=== PATIENT | female | born 1990 | race Caucasian/White ===

== ENCOUNTER 2018-01-08 17:50 | Emergency (ER) | payer OTHER ==
[2018-01-08] MEDS: DIAZEPAM 5 MG TAB PO (19:54)
[2018-01-08] MEDS: NAPROXEN 500 MG TAB PO (19:54)
== END 2018-01-08 21:30 | disposition home or self-care (01) ==
LOC: FTE 17:50
DX: S00.33XA Contusion of nose, initial encounter (principal); V89.2XXA Person injured in unspecified motor-vehicle accident, traffic, initial encounter
CPT/HCPCS: 71045; 99283-25

== ENCOUNTER 2018-07-12 04:52 | Inpatient (IN) | payer BC, OTHER ==
[2018-07-12] MEDS ORDERED: LORAZEPAM 2 MG INJ IV (06:30)
[2018-07-12] MEDS ORDERED: NACL 0.9% 3 ML SYG IV (06:30)
[2018-07-12] MEDS: DEXTROSE 5%-0.45% NACL 1,000 ML IV ×3 (07:51→22:47)
[2018-07-12] MEDS: LEVETIRACETAM IV 750 MG in DEXTROSE 5% 100 ML IVPB ×2 (08:36→22:47)
[2018-07-12] MEDS: LORAZEPAM 4 MG/ML VIAL IV ×2 (13:21→15:46)
[2018-07-12] MEDS: LORAZEPAM 2 MG INJ IV (15:15)
[2018-07-12] MEDS: CHLORDIAZEPOXIDE 25 MG CAP PO (22:48)
[2018-07-12] MEDS: HYDROCODONE/APAP (5/325) TAB PO (22:52)
[2018-07-13 05:14] LABS: ADD MAN DIFF? NO
[2018-07-13 05:25] LABS: BASOPHILS % 0.6 % (0.0-2.0); EOSINOPHILS # 0.1 10^3/ul (0.0-0.5); EOSINOPHILS % 2.2 % (0.0-7.0); HEMATOCRIT 32.9 % (37.0-47.0); HEMOGLOBIN 11.1 g/dl (12.0-16.0); LYMPHOCYTES # 2.5 10^3/ul (0.8-2.9); LYMPHOCYTES % 49.1 % (15.0-51.0); MEAN CORPUSCULAR HEMOGLOBIN 29.9 pg (29.0-33.0); MEAN CORPUSCULAR HGB CONC 33.7 g/dl (32.0-37.0); MEAN CORPUSCULAR VOLUME 88.7 fl (82.0-101.0); MEAN PLATELET VOLUME 9.1 fl (7.4-10.4); MONOCYTE # 0.4 10^3/ul (0.3-0.9); MONOCYTES % 8.3 % (0.0-11.0); NEUTROPHILS % 39.8 % (39.0-77.0); PLATELET COUNT 320 10^3/UL (140-415); RED BLOOD COUNT 3.71 10^6/ul (4.20-5.40); RED CELL DISTRIBUTION WIDTH 12.9 % (11.5-14.5)
[2018-07-13 05:25] LABS: WHITE BLOOD COUNT 5.1 10^3/ul (4.8-10.8)
[2018-07-13 05:37] LABS: ALANINE AMINOTRANSFERASE 21 IU/L (13-69); ALBUMIN 3.1 g/dl (3.3-4.9); ALBUMIN/GLOBULIN RATIO 1.14; ALKALINE PHOSPHATASE 58 IU/L (42-121); ANION GAP 6 (5-13); ASPARTATE AMINO TRANSFERASE 23 IU/L (15-46); BILIRUBIN,INDIRECT 0.2 mg/dl (0-1.1); BILIRUBIN,TOTAL 0.2 mg/dl (0.2-1.3); BLOOD UREA NITROGEN 3 mg/dl (7-20); CALCIUM 8.2 mg/dl (8.4-10.2); CARBON DIOXIDE 26 mmol/L (21-31); CHLORIDE 105 mmol/L (97-110); CHOL/HDL RATIO 2.4 RATIO; CHOLESTEROL 110 mg/dl (100-200); CREATININE 0.61 mg/dl (0.44-1.00); Estimated GFR > 60 mL/min (>60); GLUCOSE 95 mg/dl (70-220); HDL CHOLESTEROL 45 mg/dl (33-83); LDL CHOLESTEROL,CALCULATED 47 mg/dl; POTASSIUM 3.1 mmol/L (3.5-5.1); SODIUM 137 mmol/L (135-144); TOTAL PROTEIN 5.8 g/dl (6.1-8.1); TRIGLYCERIDES 91 mg/dl (0-149)
[2018-07-13] MEDS: CHLORDIAZEPOXIDE 25 MG CAP PO ×3 (09:46→20:21)
[2018-07-13] MEDS: LEVETIRACETAM IV 750 MG in DEXTROSE 5% 100 ML IVPB ×2 (10:06→20:29)
[2018-07-13] MEDS: DEXTROSE 5%-0.45% NACL 1,000 ML IV (13:41)
[2018-07-13] MEDS: ACETAMINOPHEN 325 MG TAB PO (20:21)
[2018-07-14] MEDS: POTASSIUM CHLORIDE 50 ML IVPB ×3 (00:55→03:35)
[2018-07-14] MEDS: POTASSIUM CHLORIDE (SR) 10 MEQ TAB PO (06:18)
[2018-07-14] MEDS: CHLORDIAZEPOXIDE 25 MG CAP PO ×3 (09:42→21:28)
[2018-07-14] MEDS: LEVETIRACETAM IV 750 MG in DEXTROSE 5% 100 ML IVPB ×2 (09:42→21:26)
[2018-07-14] MEDS: clonAZEPAM 0.5 MG TAB PO (21:27)
[2018-07-15 05:04] LABS: ADD MAN DIFF? NO
[2018-07-15 05:13] LABS: BASOPHILS % 0.5 % (0.0-2.0); EOSINOPHILS # 0.2 10^3/ul (0.0-0.5); EOSINOPHILS % 2.5 % (0.0-7.0); HEMATOCRIT 36.9 % (37.0-47.0); HEMOGLOBIN 12.4 g/dl (12.0-16.0); LYMPHOCYTES % 49.8 % (15.0-51.0); MEAN CORPUSCULAR HGB CONC 33.6 g/dl (32.0-37.0); MEAN CORPUSCULAR VOLUME 89.1 fl (82.0-101.0); MEAN PLATELET VOLUME 9.1 fl (7.4-10.4); MONOCYTE # 0.5 10^3/ul (0.3-0.9); NEUTROPHIL # 2.3 10^3/ul (1.6-7.5); NEUTROPHILS % 38.9 % (39.0-77.0); PLATELET COUNT 339 10^3/UL (140-415); RED BLOOD COUNT 4.14 10^6/ul (4.20-5.40); RED CELL DISTRIBUTION WIDTH 12.7 % (11.5-14.5)
[2018-07-15 05:30] LABS: INR 0.91; PROTIME 12.4 Sec (11.9-14.9)
[2018-07-15 05:32] LABS: ANION GAP 6 (5-13); BLOOD UREA NITROGEN 12 mg/dl (7-20); CALCIUM 8.7 mg/dl (8.4-10.2); CARBON DIOXIDE 31 mmol/L (21-31); CHLORIDE 102 mmol/L (97-110); CREATININE 0.72 mg/dl (0.44-1.00); Estimated GFR > 60 mL/min (>60); GLUCOSE 94 mg/dl (70-220); POTASSIUM 3.7 mmol/L (3.5-5.1); SODIUM 139 mmol/L (135-144)
[2018-07-15 05:35] LABS: PARTIAL THROMBOPLASTIN TIME 26.4 Sec (23.0-35.0)
[2018-07-15] MEDS: CHLORDIAZEPOXIDE 25 MG CAP PO ×2 (08:57→12:59)
[2018-07-15] MEDS: LEVETIRACETAM IV 750 MG in DEXTROSE 5% 100 ML IVPB ×2 (09:24→20:47)
[2018-07-15] MEDS: ACETAMINOPHEN 325 MG TAB PO (11:11)
[2018-07-15 13:42] LABS: HEPATITIS B SURFACE ANTIGEN NEGATIVE (NEGATIVE)
[2018-07-15 15:25] LABS: RAPID PLASMA REAGIN NONREACTIVE (NR)
[2018-07-15 19:53] LABS: HEPATITIS C VIRAL ANTIBODY NEGATIVE (NEGATIVE)
[2018-07-15] MEDS: clonAZEPAM 0.5 MG TAB PO (23:08)
[2018-07-16] MEDS: LEVETIRACETAM IV 750 MG in DEXTROSE 5% 100 ML IVPB ×2 (09:45→20:39)
[2018-07-16] MEDS: ACETAMINOPHEN 325 MG TAB PO ×2 (14:01→23:12)
[2018-07-16] MEDS: clonAZEPAM 0.5 MG TAB PO (20:10)
[2018-07-16 21:27] LABS: AMPHETAMINE/METHAMPHETAMINE Negative (NEGATIVE); BARBITURATES Negative (NEGATIVE); CANNABINOIDS Negative (NEGATIVE); COCAINE Negative (NEGATIVE); OPIATES Negative (NEGATIVE)
[2018-07-16 21:31] LABS: BENZODIAZEPINES Positive (NEGATIVE)
[2018-07-17 05:10] LABS: ADD MAN DIFF? NO
[2018-07-17 05:14] LABS: BASOPHILS % 0.6 % (0.0-2.0); EOSINOPHILS # 0.2 10^3/ul (0.0-0.5); EOSINOPHILS % 2.9 % (0.0-7.0); HEMATOCRIT 38.6 % (37.0-47.0); HEMOGLOBIN 13.1 g/dl (12.0-16.0); LYMPHOCYTES # 3.1 10^3/ul (0.8-2.9); LYMPHOCYTES % 43.2 % (15.0-51.0); MEAN CORPUSCULAR HEMOGLOBIN 29.8 pg (29.0-33.0); MEAN CORPUSCULAR HGB CONC 33.9 g/dl (32.0-37.0); MEAN CORPUSCULAR VOLUME 87.7 fl (82.0-101.0); MONOCYTE # 0.6 10^3/ul (0.3-0.9); MONOCYTES % 7.7 % (0.0-11.0); NEUTROPHIL # 3.3 10^3/ul (1.6-7.5); NEUTROPHILS % 45.3 % (39.0-77.0); PLATELET COUNT 337 10^3/UL (140-415)
[2018-07-17 05:14] LABS: WHITE BLOOD COUNT 7.2 10^3/ul (4.8-10.8)
[2018-07-17 05:44] LABS: ANION GAP 9 (5-13); BLOOD UREA NITROGEN 16 mg/dl (7-20); CARBON DIOXIDE 27 mmol/L (21-31); CHLORIDE 101 mmol/L (97-110); CREATININE 0.68 mg/dl (0.44-1.00); Estimated GFR > 60 mL/min (>60); GLUCOSE 94 mg/dl (70-220); POTASSIUM 4.1 mmol/L (3.5-5.1); SODIUM 137 mmol/L (135-144)
[2018-07-17] MEDS ORDERED: CEFAZOLIN 1 GM INJ (07:00)
[2018-07-17] MEDS ORDERED: DEXAMETHASONE 4 MG/ML 5 ML INJ (07:00)
[2018-07-17] MEDS ORDERED: DESFLURANE 15 MIN (07:00)
[2018-07-17] MEDS ORDERED: ONDANSETRON 4 MG INJ (07:00)
[2018-07-17] MEDS ORDERED: MIDAZOLAM 1 MG/ML 2 ML INJ ×2 (07:25→07:26)
[2018-07-17] MEDS ORDERED: ROCURONIUM 50 MG INJ (07:26)
[2018-07-17] MEDS ORDERED: LIDOCAINE 2% (SDV) 5 ML INJ (07:26)
[2018-07-17] MEDS ORDERED: METOCLOPRAMIDE 10 MG INJ (07:26)
[2018-07-17] MEDS ORDERED: PROPOFOL 40 ML (07:26)
[2018-07-17] MEDS ORDERED: LABETALOL HCL 20MG INJ IV ×2 (07:30→08:00)
[2018-07-17] MEDS ORDERED: MIDAZOLAM 1 MG/ML 2 ML INJ IV (07:30)
[2018-07-17] MEDS ORDERED: IPRATROPIUM (NEB) 0.5 MG/2.5 ML AMP HHN (07:30)
[2018-07-17] MEDS ORDERED: FENTAnyl 50 MCG/ML VIAL IV ×2 (07:30)
[2018-07-17] MEDS ORDERED: LEVALBUTEROL (NEB) 1.25 MG/0.5 ML AMP HHN (07:30)
[2018-07-17] MEDS ORDERED: hydrALAzine 20 MG INJ IV ×2 (07:30→08:00)
[2018-07-17] MEDS ORDERED: LORAZEPAM 2 MG INJ IV (07:30)
[2018-07-17] MEDS ORDERED: DIPHENHYDRAMINE 50 MG INJ IV (07:30)
[2018-07-17] MEDS ORDERED: ONDANSETRON 4 MG INJ IV ×2 (07:30→08:00)
[2018-07-17] MEDS ORDERED: HYDROmorphONE 0.5 MG/0.5 ML SYG IV ×2 (07:30)
[2018-07-17] MEDS ORDERED: LABETALOL HCL 20MG INJ (08:34)
[2018-07-17] MEDS ORDERED: FENTAnyl 50 MCG/ML VIAL (08:40)
[2018-07-17] MEDS ORDERED: METOPROLOL 5 MG INJ (08:45)
[2018-07-17] MEDS: BACITRACIN 50000 UNITS INJ ×2 (09:38→09:39)
[2018-07-17] MEDS: THROMBIN 5000 UNIT VIAL (09:39)
[2018-07-17] MEDS: GELATIN SIZE 100 SPONGE ×2 (09:39→10:01)
[2018-07-17] MEDS: LIDOCAINE 1%/EPI (1:100,000) (MDV) 20 ML (09:41)
[2018-07-17] MEDS: POVIDONE IODINE 10% 28.4 GM OINT (09:55)
[2018-07-17] MEDS ORDERED: GLYCOPYRROLATE 0.4 MG INJ (09:56)
[2018-07-17] MEDS ORDERED: ALBUMIN HUMAN 25% 200 ML (09:56)
[2018-07-17] MEDS ORDERED: NEOSTIGMINE 3 MG/3 ML SYRINGE (09:57)
[2018-07-17] MEDS: BACITRACIN/POLYMYXIN 28.35 GM OINT TOP (10:15)
[2018-07-17] MEDS: LEVETIRACETAM IV 750 MG in DEXTROSE 5% 100 ML IVPB ×2 (11:08→21:00)
[2018-07-17] MEDS: DEXAMETHASONE 4 MG/ML 1 ML INJ IV ×2 (11:52→17:49)
[2018-07-17] MEDS: ONDANSETRON 4 MG INJ IV ×2 (11:57→16:01)
[2018-07-17] MEDS: HYDROmorphONE 0.5 MG/0.5 ML SYG IV (11:58)
[2018-07-17] MEDS: LORAZEPAM 2 MG INJ IV (13:14)
[2018-07-17] MEDS: CEFAZOLIN 1 GM/50 ML (PMX) 50 ML IVPB ×2 (14:23→21:52)
[2018-07-17] MEDS: ACETAMINOPHEN 325 MG TAB PO (14:29)
[2018-07-17] MEDS ORDERED: morphine SULFATE/PF (2 MG/2 ML) SYG IV (15:30)
[2018-07-17] MEDS: HYDROCODONE/APAP (5/325) TAB PO ×2 (16:02→21:52)
[2018-07-17] MEDS: FENTAnyl 50 MCG/ML VIAL IV (20:31)
[2018-07-17] MEDS: DIPHENHYDRAMINE 25 MG CAP PO (22:16)
[2018-07-18] MEDS: HYDROCODONE/APAP (5/325) TAB PO ×3 (03:24→14:28)
[2018-07-18] MEDS: CEFAZOLIN 1 GM/50 ML (PMX) 50 ML IVPB (06:51)
[2018-07-18] MEDS: DEXAMETHASONE 4 MG/ML 1 ML INJ IV ×5 (06:51→23:21)
[2018-07-18] MEDS: morphine 4 MG/ML VIAL IV ×2 (08:35→20:37)
[2018-07-18] MEDS: LEVETIRACETAM IV 750 MG in DEXTROSE 5% 100 ML IVPB ×2 (10:35→20:35)
[2018-07-18] MEDS: LORAZEPAM 2 MG INJ IV ×2 (17:27→22:25)
[2018-07-19] MEDS: ACETAMINOPHEN 325 MG TAB PO (01:26)
[2018-07-19] MEDS: morphine 4 MG/ML VIAL IV ×3 (01:26→14:16)
[2018-07-19] MEDS ORDERED: clonAZEPAM 0.5 MG TAB PO (02:00)
[2018-07-19] MEDS: DEXAMETHASONE 4 MG/ML 1 ML INJ IV (06:54)
[2018-07-19] MEDS: HYDROCODONE/APAP (5/325) TAB PO ×2 (07:03→11:58)
[2018-07-19] MEDS: LEVETIRACETAM IV 750 MG in DEXTROSE 5% 100 ML IVPB (09:50)
[2018-07-19] MEDS ORDERED: LEVETIRACETAM 750 MG TAB PO (21:00)
== END 2018-07-19 16:15 | disposition home or self-care (01) | DRG 24 ==
LOC: ICU 07-17 10:37 → MS1 07-19 00:56 → E/R 04:52 → ICU 12:19 → MS1 07-13 23:52 → ICU 04:57
PROC: 00B00ZZ Excision of Brain, Open Approach (ICD-10-PCS; principal; 2018-07-17 07:30)
PROC: 8E09XBZ Computer Assisted Procedure of Head and Neck Region (ICD-10-PCS; 2018-07-17 07:30)
DX: I61.8 Other nontraumatic intracerebral hemorrhage (principal); I16.1 Hypertensive emergency; G40.909 Epilepsy, unspecified, not intractable, without status epilepticus; I61.9 Nontraumatic intracerebral hemorrhage, unspecified; E87.6 Hypokalemia; F15.188 Other stimulant abuse with other stimulant-induced disorder
CPT/HCPCS: 70450; 70544; 70549; 70551; 70553; 80048; 80053; 80061; 80307; 83036; 84443; 84703; 85025; 85610; 85730; 86592; 86803; 86850; 86900; 86901; 87081; 87340; 88305; 88307; 97161; 99285-25

== ENCOUNTER 2018-07-21 19:26 | Emergency (ER) | payer BC, OTHER | END 2018-07-21 23:01 | disposition home or self-care (01) | LOC: E/R 19:26 | DX: F19.20 Other psychoactive substance dependence, uncomplicated (principal); F15.10 Other stimulant abuse, uncomplicated; Z87.891 Personal history of nicotine dependence | CPT/HCPCS: 99285 ==

== ENCOUNTER 2018-10-04 23:15 | Emergency (ER) | payer SELFPAY, BC, OTHER | END 2018-10-05 02:55 | disposition left against medical advice (07) | LOC: E/R 23:15 | DX: Z53.21 Procedure and treatment not carried out due to patient leaving prior to being seen by health care provider (principal) ==